=== PATIENT | male | born 1995 | race African-American/Black ===

== ENCOUNTER 2021-04-28 16:19 | Emergency (ER) | payer OTHER, SELFPAY ==
[2021-04-28 16:30] VITALS: BP 132/85; PULSE 74; RESP 16; O2SAT 99
--- NOTE | 2021-04-28 16:53 | ED.MALEGU ---
HPI - Male Genitourinary General Chief complaint: Urogenital-Male Stated complaint: testicular pain Source: patient and RN notes reviewed Limitations: no limitations History of Present Illness HPI Narrative: The overweight patient, previously mostly healthy, presents with testicular discomfort. Patient states he is sexually active [not anoreceptive], and has a 1 week history of gradual right testicle discomfort that is worse with activity like weight lifting and better with rest. No swelling, frequency/urgency/dysuria, discharge,, rash. Discussed possible causes [infectious, acquired varicocele, surgical ] , and will treat broadly pending results; he requests refill of his inhaler Related Data Allergies Allergy/AdvReac Type Severity Reaction Status Date / Time No Known Drug Allergies Allergy Unknown Unknown Verified 07/28/19 02:07 Review of Systems Review of Systems: General/Constitutional: No weight loss,fever Eyes: N0: Redness,discharge Ears/Nose/Throat: No: Epistaxis,ear discharge Respiratory: Denies: Hemoptysis Gastrointestinal: No Vomiting, Bleeding-rectal Skin: No Lumps, eruption Neurologic: No Focal Weakness,Sz Hematologic: Denies: Petechiae/Purpura Psychiatric: No: Suicida ideationl All Other Systems: Reviewed and Negative PMFSH Past Medical History Medical History (Updated 04/28/21 @ 16:55 by Zi Ortega MD) ACL tear Tear of meniscus of knee Surgical History Surgical History History of arthroscopic knee surgery Social History Social History Smoking status: Current some day smoker Tobacco type: cigarettes and e-cigarettes/vaping Gender identity (if verbalized by the patient): Male Comments At time of signature, agree with nursing past medical, surgical, social and family history. There is no relevant family history pertinent to the presenting complaint Exam Narrative: General Appearance: Nourished/overweight,, Conjunctiva clear Mouth/Throat: Normal appearing, Normal lips, Supple Respiratory: Airway patent, No respiratory distress GI/: Soft, Non-tender, No masses; bilat descended testicles, no inguinal hernia, uncircumcised phallus, normal testes without tenderness Musculoskeletal: Full ROM Skin: Warm, Dry Neurological: A&O x3, CN II-X intact Psychiatric: Normal mood, Normal affect Course Vital Signs Vital signs: Vital Signs Pulse Rate 74 04/28/21 16:30 Respiratory Rate 16 04/28/21 16:30 Blood Pressure 132/85 04/28/21 16:30 Pulse Oximetry 99 04/28/21 16:30 Pulse Rate 74 04/28/21 16:30 Respiratory Rate 16 04/28/21 16:30 Blood Pressure 132/85 04/28/21 16:30 Pulse Oximetry 99 04/28/21 16:30 MDM - Male Genitourinary Lab Data Labs: Lab Results 04/28/21 Range/Units 16:53 C.trachomatis RNA (TMA) Pending N.gonorrhoeae RNA (TMA) Pending T. vaginalis Amp RNA Pending Discharge Plan Discharge Clinical Impression: Orchalgia Qualifiers: Laterality: right Qualified Code(s): N50.811 - Right testicular pain Patient Disposition: Home, Self-Care Condition: Stable Instructions: Testicle Pain (ED) Additional Instructions: You may take OTC pain meds, jockstrap/support Prescriptions: New doxycycline hyclate 100 mg tablet 100 mg PO DAILY Qty: 14 RF: 0 albuterol sulfate [Ventolin HFA] 90 mcg/actuation HFA aerosol inhaler 2 puff INHALATION QID PRN (Reason: shortness of breath or wheezing) Qty: 8.5 RF: 1 No Action mupirocin 2 % ointment 1 applic TOPICAL TID Qty: 30 RF: 0 Follow-up/Referrals: UNKNOWN,DOCTOR [Primary Care Provider] -
== END 2021-04-28 17:02 | disposition home or self-care (01) ==
PROVIDERS: Emergency Provider Emergency Medicine
DX: N50.811 Right testicular pain (principal); F17.200 Nicotine dependence, unspecified, uncomplicated
CPT/HCPCS: 87491; 87591; 87661; 99213; G0463